=== PATIENT | male | born 2000 | race Caucasian/White ===

== ENCOUNTER 2022-09-26 19:00 | Emergency (ER) | payer OTHER, MEDICAID ==
[~2022-09-26] VITALS: Ht 195.6 cm; Wt 160.0 kg
[2022-09-26 19:09] VITALS: TEMP 97.7
[2022-09-26 20:30] VITALS: BP 148/94; PULSE 97; RESP 19; O2SAT 97
[2022-09-26] MEDS ORDERED: MIDAZOLAM HCL 2 MG/2 ML VIAL IV ONE (20:30)
[2022-09-26] MEDS ORDERED: PROPOFOL 200MG/20ML VIAL IV ONE (20:30)
[2022-09-26] MEDS ORDERED: T3 PO (22:43)
== END 2022-09-26 23:57 | disposition home or self-care (01) ==
LOC: ER 19:00
DX: S43.004A Unspecified dislocation of right shoulder joint, initial encounter (principal); X58.XXXA Exposure to other specified factors, initial encounter; Y93.89 Activity, other specified; Y92.89 Other specified places as the place of occurrence of the external cause; Y99.8 Other external cause status
CPT/HCPCS: 73030; 23650; 96374; 99152; 99285; J2250; J2704; Z7610 ×3; A4565